=== PATIENT | male | born 1985 ===

== ENCOUNTER 2019-02-18 07:04 | Emergency (ER) | payer MEDICARE, OTHER ==
[~2019-02-18] VITALS: Ht 167.6 cm; Wt 80.7 kg
[~2019-02-18 07:04] MED LIST: ALBU90OI INH; CLIN300 PO; DOXY100 PO; HYDACE5 PO; HYDGUAL120 PO; IBUP600 PO; LOPE2C PO; LORA1 PO
[2019-02-18] MEDS ORDERED: VENLAFAXINE HCL75 MG PO (07:58)
[2019-02-18] MEDS ORDERED: GABA800 PO (08:06)
[2019-02-18] MEDS ORDERED: Percocet 5-3251 EACH PO (09:15)
[2019-02-23] MEDS ORDERED: GRALISE600 MG PO (09:58)
[2019-02-23] MEDS ORDERED: VENL75ER PO (09:59)
== END 2019-02-18 10:05 | disposition home or self-care (01) ==
LOC: ER 07:04
DX: S82.841A Displaced bimalleolar fracture of right lower leg, initial encounter for closed fracture (principal); S01.01XA Laceration without foreign body of scalp, initial encounter; F17.200 Nicotine dependence, unspecified, uncomplicated; Z88.2 Allergy status to sulfonamides; Z88.1 Allergy status to other antibiotic agents; Z79.899 Other long term (current) drug therapy; Y04.2XXA Assault by strike against or bumped into by another person, initial encounter
CPT/HCPCS: 29505; 73610; 96372-59; 99283-25; J1170